=== PATIENT | male | born 1930 | race Caucasian/White ===

== ENCOUNTER 2016-10-09 20:30 | Inpatient (IN) | payer OTHER, BC ==
[~2016-10-09] VITALS: Ht 170.2 cm; Wt 69.9 kg
[~2016-10-09 20:30] MED LIST: ADVAIR HFA120 INHAL1 IH; ATROVENT 00.5 MG/2.5 IH; Ambien PO; Bentyl PO; CALCITRIOL0.25 MCG PO; CLARITHROMYCIN250 M1 PO; CLEOCIN300 MG PO; COLCHICINE,COL0.6 MG PO; COREG3.125 M1 PO; COUMADIN,JANTOVE4 MG PO; CRESTOR5 MG PO; Colchicine,Colcrys PO; Coreg PO; Coumadin,Jantoven PO; Cozaar PO; DIOVAN160 MG PO; Feosol PO; HYDROCODON-ACE1 EAC7 PO; LASIX20 MG PO; LASIX40 MG PO; LEVO-T50 MCG PO; LEVO-T88 MCG PO; LEVOFLOXACIN250 MG PO; LISINOPRIL2.5 MG PO; LISINOPRIL5 MG PO; Lasix PO; Levaquin PO; PRAVACHOL40 MG PO; PREDNISONE20 M1 PO; PROCRIT SQ; PROCRIT10000 UNI1 SC; PROCRIT40000 UNI1 IM; PROTONIX40 MG PO; PROVENTIL,2.5 MG/3 M IH; Pravachol PO; PriLOSEC PO; Protonix PO; Rocaltrol PO; SPIRIVA1 INHALATI IH; SYMBICORT60 INHALAT IH; SYNTHROID50 MCG PO; Symbicort 160-4.5 mc IH; VENTOLIN HFA18 GM IH; Vicodin,Norco 5/325 PO; Vitamin D PO; ZYLOPRIM100 MG PO; Zestril,Prinivil PO; Zyloprim PO; [UNRECOGNIZED DRUG - CODE] PO
[2016-10-09 22:46] LABS: ADD MIUA? NO; BILIRUBIN NEGATIVE; BLOOD NEGATIVE; COLOR YELLOW ((YELLOW)); GLUCOSE (STRIP) NEGATIVE; KETONES NEGATIVE; LEUKOCYTES NEGATIVE; NITRITE NEGATIVE; PROTEIN (STRIP) NEGATIVE; SPECIFIC GRAVITY 1.011 (1.000-1.030); UCUL ADDED? NO; UROBILINOGEN 0.2 MG/DL (0.2-1.0)
[2016-10-09 22:54] LABS: EOSINOPHIL (%) 5.6 % (0-5); EOSINOPHIL COUNT 0.1 K/uL (0-0.3); HEMATOCRIT 28.9 % (38.0-50.0); LYMPHOCYTE COUNT 0.8 K/uL (1.0-2.8); MCH 33.7 PG (29.0-34.0); MCHC 34.3 G/DL (30.0-36.0); MCV 98.3 FL (86-99); MEAN PLAT.VOLUME 9.6 uM^3 (9.0-12.4); MONOCYTE (%) 11.5 % (3-12); MONOCYTE COUNT 0.3 K/uL (0-0.8); NEUTROPHIL (%) 49.6 % (45-76); NEUTROPHIL COUNT 1.2 K/uL (1.8-6.4); PLATELET COUNT 76 K/uL (156-360); RBC DIS.WIDTH-CV 15.7 % (11.8-14.6); RED BLOOD COUNT 2.94 M/uL (4.00-5.50)
[2016-10-09 22:56] LABS: WHITE BLOOD COUNT 2.3 K/uL (4.1-10.2)
[2016-10-09 23:09] LABS: CHLORIDE 97 mEq/L (99-109); POTASSIUM 5.4 mEq/L (3.7-5.4); SODIUM 130 mEq/L (136-147)
[2016-10-09 23:10] LABS: MAGNESIUM 1.8 mg/dL (1.3-2.7)
[2016-10-09 23:12] LABS: GLUCOSE 98 mg/dL (70-99)
[2016-10-09 23:13] LABS: ANION GAP 14 MEQ/L (2-14)
[2016-10-09 23:14] LABS: TOTAL BILIRUBIN 0.7 mg/dL (0.0-1.0)
[2016-10-09 23:15] LABS: ALKALINE PHOSPHATASE 102 IU/L (3-129)
[2016-10-09 23:17] LABS: UREA NITROGEN (BUN) 86 mg/dL (9-23)
[2016-10-09 23:32] LABS: GFR ESTIMATE (CALCULATED) 11 mL/min/
[2016-10-10] MEDS ORDERED: SPIRIVA1 INHALATI IH (00:35)
[2016-10-10] MEDS ORDERED: VENTOLIN HFA18 GM IH (00:36)
[2016-10-10 03:28] VITALS: BP 121/65
[2016-10-10 03:45] LABS: ERTH.SED.RATE 84 MM/HR (0-20)
[2016-10-10 07:21] VITALS: BP 116/56
[2016-10-10 11:47] VITALS: BP 126/60
[2016-10-10 15:37] VITALS: BP 116/57
[2016-10-10 19:53] VITALS: BP 113/56
[2016-10-10 23:10] VITALS: BP 122/65
[2016-10-11 04:12] VITALS: BP 127/67
[2016-10-11 07:10] LABS: ANION GAP 12 MEQ/L (2-14); C-REACTIVE PROTEIN 32.5 MG/L (0-10); CHLORIDE 98 MEQ/L (99-109); GFR ESTIMATE (CALCULATED) 11 mL/min/; GLUCOSE 102 mg/dL (70-99); SAMPLE HEMOLYSIS CHECK 0; SAMPLE ICTERIC CHECK 0; SAMPLE LIPEMIA CHECK 0; SODIUM 130 MEQ/L (136-147); UREA NITROGEN (BUN) 84 mg/dL (9-23)
[2016-10-11 07:25] VITALS: BP 129/58
[2016-10-11 08:48] LABS: HEMATOCRIT 28.3 % (38.0-50.0); MCH 33.8 PG (29.0-34.0); MCHC 34.3 G/DL (30.0-36.0); MCV 98.6 FL (86-99); PLATELET COUNT 58 K/uL (156-360); RBC DIS.WIDTH-SD 58.2 % (39-53); RED BLOOD COUNT 2.87 M/uL (4.00-5.50); WHITE BLOOD COUNT 2.1 K/uL (4.1-10.2)
[2016-10-11 09:42] LABS: ERTH.SED.RATE 46 MM/HR (0-20)
[2016-10-11 11:33] VITALS: BP 126/64
[2016-10-11 13:31] LABS: FERRITIN 131 NG/ML (22-322)
[2016-10-11 15:30] VITALS: BP 105/53
[2016-10-11 21:02] VITALS: BP 116/56
[2016-10-11 23:39] VITALS: BP 129/85
[2016-10-12 05:26] VITALS: BP 137/64
[2016-10-12 07:00] VITALS: BP 143/63
[2016-10-12 07:29] LABS: ANION GAP 15 MEQ/L (2-14); CHLORIDE 98 MEQ/L (99-109); GFR ESTIMATE (CALCULATED) 11 mL/min/; GLUCOSE 128 mg/dL (70-99); POTASSIUM 4.7 MEQ/L (3.7-5.4); SAMPLE HEMOLYSIS CHECK 0; SAMPLE ICTERIC CHECK 0; SAMPLE LIPEMIA CHECK 0; SODIUM 132 MEQ/L (136-147); UREA NITROGEN (BUN) 86 mg/dL (9-23)
[2016-10-12 07:40] LABS: EOSINOPHIL (%) 5.3 % (0-5); EOSINOPHIL COUNT 0.1 K/uL (0-0.3); HEMATOCRIT 26.2 % (38.0-50.0); LYMPHOCYTE COUNT 0.6 K/uL (1.0-2.8); MCH 33.5 PG (29.0-34.0); MCHC 34.7 G/DL (30.0-36.0); MCV 96.3 FL (86-99); MONOCYTE (%) 10.5 % (3-12); MONOCYTE COUNT 0.2 K/uL (0-0.8); NEUTROPHIL (%) 42.8 % (45-76); NEUTROPHIL COUNT 0.7 K/uL (1.8-6.4); RBC DIS.WIDTH-CV 16.1 % (11.8-14.6); RBC DIS.WIDTH-SD 56.3 % (39-53); RED BLOOD COUNT 2.72 M/uL (4.00-5.50)
[2016-10-12 07:50] LABS: MEAN PLAT.VOLUME 10.1 uM^3 (9.0-12.4); PLAT.SUFFICIENCY DECREASED; PLATELET COUNT 42 K/uL (156-360); USER ID STC
[2016-10-12 07:53] LABS: WHITE BLOOD COUNT 1.5 K/uL (4.1-10.2)
[2016-10-12 12:00] VITALS: BP 134/62
[2016-10-12 16:00] VITALS: BP 124/67
[2016-10-12 22:27] VITALS: BP 131/60
[2016-10-13 06:21] LABS: EOSINOPHIL (%) 4.5 % (0-5); EOSINOPHIL COUNT 0.1 K/uL (0-0.3); HEMATOCRIT 25.2 % (38.0-50.0); LYMPHOCYTE COUNT 0.7 K/uL (1.0-2.8); MCH 33.1 PG (29.0-34.0); MCHC 34.1 G/DL (30.0-36.0); MCV 96.9 FL (86-99); MONOCYTE (%) 8.9 % (3-12); MONOCYTE COUNT 0.1 K/uL (0-0.8); NEUTROPHIL (%) 41.4 % (45-76); NEUTROPHIL COUNT 0.7 K/uL (1.8-6.4); RBC DIS.WIDTH-CV 16.2 % (11.8-14.6); RBC DIS.WIDTH-SD 57.6 % (39-53)
[2016-10-13 06:33] LABS: MEAN PLAT.VOLUME 10.3 uM^3 (9.0-12.4); PLAT.SUFFICIENCY DECREASED; PLATELET COUNT 33 K/uL (156-360); USER ID WCD; WHITE BLOOD COUNT 1.6 K/uL (4.1-10.2)
[2016-10-13 07:29] LABS: ALKALINE PHOSPHATASE 85 IU/L (3-129); ANION GAP 15 MEQ/L (2-14); CHLORIDE 103 MEQ/L (99-109); GFR ESTIMATE (CALCULATED) 11 mL/min/; GLUCOSE 120 mg/dL (70-99); POTASSIUM 4.8 MEQ/L (3.7-5.4); SAMPLE HEMOLYSIS CHECK 9; SAMPLE ICTERIC CHECK 9; SAMPLE LIPEMIA CHECK 9; SODIUM 134 MEQ/L (136-147); TOTAL BILIRUBIN 0.5 MG/DL (0.0-1.0); UREA NITROGEN (BUN) 90 mg/dL (9-23)
[2016-10-13 08:16] VITALS: BP 129/63
[2016-10-13 23:13] VITALS: BP 140/65
[2016-10-14 06:38] LABS: EOSINOPHIL (%) 2.9 % (0-5); EOSINOPHIL COUNT 0.1 K/uL (0-0.3); HEMATOCRIT 26.1 % (38.0-50.0); LYMPHOCYTE COUNT 0.9 K/uL (1.0-2.8); MCH 33.1 PG (29.0-34.0); MCHC 33.7 G/DL (30.0-36.0); MCV 97.7 FL (86-99); MONOCYTE (%) 11.6 % (3-12); MONOCYTE COUNT 0.2 K/uL (0-0.8); NEUTROPHIL (%) 32.9 % (45-76); NEUTROPHIL COUNT 0.6 K/uL (1.8-6.4); NRBC (%) 1.1 /100 WBC (0-0); RBC DIS.WIDTH-CV 16.3 % (11.8-14.6); RBC DIS.WIDTH-SD 58.2 % (39-53); RED BLOOD COUNT 2.66 M/uL (4.00-5.50)
[2016-10-14 06:39] LABS: WHITE BLOOD COUNT 1.7 K/uL (4.1-10.2)
[2016-10-14 07:27] VITALS: BP 144/84
[2016-10-14 07:47] LABS: ANION GAP 12 MEQ/L (2-14); CHLORIDE 101 MEQ/L (99-109); GFR ESTIMATE (CALCULATED) 11 mL/min/; GLUCOSE 107 mg/dL (70-99); POTASSIUM 4.9 MEQ/L (3.7-5.4); SAMPLE HEMOLYSIS CHECK 0; SAMPLE ICTERIC CHECK 0; SAMPLE LIPEMIA CHECK 0; SODIUM 133 MEQ/L (136-147); UREA NITROGEN (BUN) 88 mg/dL (9-23)
[2016-10-14 08:22] LABS: PLAT.SUFFICIENCY DECREASED; USER ID SDF
[2016-10-14 08:24] LABS: PLATELET COUNT 28 K/uL (156-360)
[2016-10-14 16:31] VITALS: BP 146/67
[2016-10-14 22:45] VITALS: BP 138/65
[2016-10-15 06:50] LABS: EOSINOPHIL (%) 1.2 % (0-5); HEMATOCRIT 24.1 % (38.0-50.0); IMMATURE GRANULOCYTE (%) 0.6 % (0.0-0.7); LYMPHOCYTE COUNT 0.7 K/uL (1.0-2.8); MCH 33.2 PG (29.0-34.0); MCV 98.4 FL (86-99); MEAN PLAT.VOLUME 10.2 uM^3 (9.0-12.4); MONOCYTE (%) 15.9 % (3-12); MONOCYTE COUNT 0.3 K/uL (0-0.8); NEUTROPHIL (%) 38.4 % (45-76); NEUTROPHIL COUNT 0.6 K/uL (1.8-6.4); RBC DIS.WIDTH-CV 16.2 % (11.8-14.6); RBC DIS.WIDTH-SD 58.2 % (39-53); RED BLOOD COUNT 2.47 M/uL (4.00-5.50)
[2016-10-15 06:52] LABS: ALKALINE PHOSPHATASE 84 IU/L (3-129); ANION GAP 10 MEQ/L (2-14); CHLORIDE 99 MEQ/L (99-109); GFR ESTIMATE (CALCULATED) 11 mL/min/; GLUCOSE 131 mg/dL (70-99); SAMPLE HEMOLYSIS CHECK 0; SAMPLE ICTERIC CHECK 0; SAMPLE LIPEMIA CHECK 0; SODIUM 131 MEQ/L (136-147); TOTAL BILIRUBIN 0.4 MG/DL (0.0-1.0); UREA NITROGEN (BUN) 94 mg/dL (9-23)
[2016-10-15 07:03] LABS: PLATELET COUNT 28 K/uL (156-360); WHITE BLOOD COUNT 1.6 K/uL (4.1-10.2)
[2016-10-15 07:11] LABS: HEMATOLOGY COMMENT 1 SMEAR COMPATIBLE; PLAT.SUFFICIENCY DECREASED; USER ID SDF
[2016-10-15 07:28] VITALS: BP 136/61
[2016-10-15 16:33] VITALS: BP 116/54
[2016-10-15 22:59] VITALS: BP 124/65
[2016-10-16 06:52] LABS: ALKALINE PHOSPHATASE 77 IU/L (3-129); ANION GAP 10 MEQ/L (2-14); CHLORIDE 99 MEQ/L (99-109); GFR ESTIMATE (CALCULATED) 9 mL/min/; GLUCOSE 121 mg/dL (70-99); POTASSIUM 5.2 MEQ/L (3.7-5.4); SAMPLE HEMOLYSIS CHECK 0; SAMPLE ICTERIC CHECK 0; SAMPLE LIPEMIA CHECK 0; SODIUM 130 MEQ/L (136-147); TOTAL BILIRUBIN 0.4 MG/DL (0.0-1.0); UREA NITROGEN (BUN) 100 mg/dL (9-23)
[2016-10-16 07:11] LABS: ANION GAP 11 MEQ/L (2-14); CHLORIDE 99 MEQ/L (99-109); GFR ESTIMATE (CALCULATED) 9 mL/min/; GLUCOSE 122 mg/dL (70-99); POTASSIUM 5.3 MEQ/L (3.7-5.4); SAMPLE HEMOLYSIS CHECK 0; SAMPLE ICTERIC CHECK 0; SAMPLE LIPEMIA CHECK 0; SODIUM 132 MEQ/L (136-147); UREA NITROGEN (BUN) 100 mg/dL (9-23)
[2016-10-16 07:25] LABS: HEMATOCRIT 23.5 % (38.0-50.0); IMMATURE GRANULOCYTE (%) 0.5 % (0.0-0.7); LYMPHOCYTE COUNT 0.9 K/uL (1.0-2.8); MCH 33.8 PG (29.0-34.0); MCHC 34.5 G/DL (30.0-36.0); MONOCYTE (%) 10.5 % (3-12); MONOCYTE COUNT 0.2 K/uL (0-0.8); NEUTROPHIL COUNT 0.9 K/uL (1.8-6.4); RBC DIS.WIDTH-SD 57.7 % (39-53)
[2016-10-16 07:32] LABS: MEAN PLAT.VOLUME 11.3 uM^3 (9.0-12.4); PLAT.SUFFICIENCY DECREASED; USER ID SDF
[2016-10-16 07:33] LABS: PLATELET COUNT 30 K/uL (156-360)
[2016-10-16 08:40] VITALS: BP 130/58
[2016-10-16 16:18] VITALS: BP 138/64
[2016-10-16 19:41] LABS: HBSG INDEX 0.22
[2016-10-16 19:42] LABS: AHBS INDEX 0.07; HEPATITIS B SURFACE ANTIBODY Nonreactive; HPCA INDEX 0.17
[2016-10-16 19:49] LABS: ANTI-HEPATITIS B CORE (TOTAL) Nonreactive; HBCT INDEX 0.12
[2016-10-16 23:33] VITALS: BP 125/64
[2016-10-17 07:39] VITALS: BP 119/66
[2016-10-17 08:26] LABS: INTER. NORMALIZED RATIO 1.1; PROTHROMBIN TIME 10.8 (9.2-11.2); PTT 33.8 (25-32)
[2016-10-17 08:53] LABS: HEMATOCRIT 23.8 % (38.0-50.0); MCH 33.5 PG (29.0-34.0); MCHC 34.9 G/DL (30.0-36.0); RBC DIS.WIDTH-CV 15.8 % (11.8-14.6); RBC DIS.WIDTH-SD 55.4 % (39-53); RED BLOOD COUNT 2.48 M/uL (4.00-5.50); WHITE BLOOD COUNT 1.7 K/uL (4.1-10.2)
[2016-10-17 08:59] LABS: ANION GAP 13 MEQ/L (2-14); CHLORIDE 98 MEQ/L (99-109); GFR ESTIMATE (CALCULATED) 9 mL/min/; GLUCOSE 160 mg/dL (70-99); SAMPLE HEMOLYSIS CHECK 0; SAMPLE ICTERIC CHECK 0; SAMPLE LIPEMIA CHECK 0; SODIUM 132 MEQ/L (136-147); UREA NITROGEN (BUN) 109 mg/dL (9-23)
[2016-10-17 09:02] LABS: MEAN PLAT.VOLUME 11.8 uM^3 (9.0-12.4)
[2016-10-17 09:19] LABS: PLATELET COUNT 44 K/uL (156-360)
[2016-10-17 11:13] LABS: EOSINOPHIL (%) 0 % (0-5); IMMATURE GRANULOCYTE (%) 0.6 % (0.0-0.7); LYMPHOCYTE COUNT 0.6 K/uL (1.0-2.8); MONOCYTE COUNT 0.1 K/uL (0-0.8); NEUTROPHIL (%) 57.3 % (45-76)
[2016-10-17 11:41] LABS: ABS NEUTROPHIL COUNT 0.93; EOSINOPHIL ABS CT 0.02; MACROCYTES 1+; OVALOCYTES RARE
[2016-10-17 12:22] VITALS: BP 136/76
[2016-10-17 15:43] VITALS: BP 140/91
[2016-10-17 23:35] VITALS: BP 119/58
[2016-10-18 08:14] LABS: ANION GAP 10 MEQ/L (2-14); CHLORIDE 101 MEQ/L (99-109); POTASSIUM 4.2 MEQ/L (3.7-5.4); SAMPLE HEMOLYSIS CHECK 0; SAMPLE ICTERIC CHECK 0; SAMPLE LIPEMIA CHECK 0; SODIUM 133 MEQ/L (136-147)
[2016-10-18 08:19] LABS: MCH 32.8 PG (29.0-34.0); MCHC 34.2 G/DL (30.0-36.0); MEAN PLAT.VOLUME 11.5 uM^3 (9.0-12.4); PLATELET COUNT 69 K/uL (156-360); RBC DIS.WIDTH-CV 15.6 % (11.8-14.6); RBC DIS.WIDTH-SD 54.8 % (39-53); WHITE BLOOD COUNT 2.9 K/uL (4.1-10.2)
[2016-10-18 08:20] LABS: GFR ESTIMATE (CALCULATED) 14 mL/min/; GLUCOSE 190 mg/dL (70-99); UREA NITROGEN (BUN) 67 mg/dL (9-23)
[2016-10-18 13:23] VITALS: BP 136/74
[2016-10-18 16:14] VITALS: BP 117/53
[2016-10-19 00:13] VITALS: BP 125/64
[2016-10-19] MEDS ORDERED: BUMETANIDE0.5 MG PO (07:55)
[2016-10-19] MEDS ORDERED: CALCIUM ACETAT667 MG PO (07:55)
[2016-10-19] MEDS ORDERED: PREDNISONE20 MG PO (07:55)
[2016-10-19] MEDS ORDERED: NABI650T PO (07:55)
[2016-10-19] MEDS ORDERED: ARANESP60 MCG/0.3 SC (07:55)
[2016-10-19] MEDS ORDERED: TUDORZA PRESS400 MCG IH (08:02)
[2016-10-19 08:53] LABS: ANION GAP 13 MEQ/L (2-14); CHLORIDE 100 MEQ/L (99-109); GFR ESTIMATE (CALCULATED) 16 mL/min/; GLUCOSE 233 mg/dL (70-99); POTASSIUM 4.2 MEQ/L (3.7-5.4); SAMPLE HEMOLYSIS CHECK 0; SAMPLE ICTERIC CHECK 0; SAMPLE LIPEMIA CHECK 0; SODIUM 135 MEQ/L (136-147); UREA NITROGEN (BUN) 58 mg/dL (9-23)
[2016-10-19 09:47] LABS: EOSINOPHIL (%) 0 % (0-5); HEMATOCRIT 25.2 % (38.0-50.0); IMMATURE GRANULOCYTE (%) 1.4 % (0.0-0.7); IMMATURE GRANULOCYTE COUNT 0.1 K/uL; LYMPHOCYTE COUNT 0.7 K/uL (1.0-2.8); MCH 33.6 PG (29.0-34.0); MCHC 34.5 G/DL (30.0-36.0); MCV 97.3 FL (86-99); MEAN PLAT.VOLUME 11.4 uM^3 (9.0-12.4); MONOCYTE (%) 9.4 % (3-12); MONOCYTE COUNT 0.3 K/uL (0-0.8); NEUTROPHIL (%) 70.7 % (45-76); NEUTROPHIL COUNT 2.6 K/uL (1.8-6.4); PLAT.SUFFICIENCY DECREASED; RBC DIS.WIDTH-CV 15.8 % (11.8-14.6); RBC DIS.WIDTH-SD 55.8 % (39-53); RED BLOOD COUNT 2.59 M/uL (4.00-5.50); USER ID TLN; WHITE BLOOD COUNT 3.6 K/uL (4.1-10.2)
[2016-10-19 09:52] LABS: ABS NEUTROPHIL COUNT 3.05; ANISOCYTOSIS 1+; MACROCYTES 1+; OVALOCYTES OCC; POLYCHROMASIA 1+
[2016-10-19 09:56] LABS: PLATELET COUNT 90 K/uL (156-360)
[2016-10-19 12:24] VITALS: BP 129/64
[2016-10-19 16:02] VITALS: BP 124/58
[2016-10-19 16:03] VITALS: BP 138/62
[2016-10-19 23:08] VITALS: BP 125/59
[2016-10-20 07:20] VITALS: BP 155/71
[2016-10-20 08:19] LABS: HEMATOCRIT 24.2 % (38.0-50.0); MCH 33.2 PG (29.0-34.0); MCHC 33.5 G/DL (30.0-36.0); MCV 99.2 FL (86-99); PLATELET COUNT 86 K/uL (156-360); RBC DIS.WIDTH-CV 16.4 % (11.8-14.6); RBC DIS.WIDTH-SD 58.5 % (39-53); RED BLOOD COUNT 2.44 M/uL (4.00-5.50); WHITE BLOOD COUNT 4.2 K/uL (4.1-10.2)
[2016-10-20 08:39] LABS: ANION GAP 12 MEQ/L (2-14); CHLORIDE 103 MEQ/L (99-109); GFR ESTIMATE (CALCULATED) 21 mL/min/; GLUCOSE 225 mg/dL (70-99); POTASSIUM 3.9 MEQ/L (3.7-5.4); SAMPLE HEMOLYSIS CHECK 0; SAMPLE ICTERIC CHECK 0; SAMPLE LIPEMIA CHECK 0; SODIUM 138 MEQ/L (136-147); UREA NITROGEN (BUN) 41 mg/dL (9-23)
[2016-10-20 13:12] LABS: Flow Clinical Information PANCYTOPENIA (()); Flow Number of Markers 22 (()); Flow Spec Viability 92 % (()); Flow Specimen Type BONE MARROW (())
== END 2016-10-20 15:21 | disposition home or self-care (01) | DRG 683 ==
LOC: EME 20:30 → 5EAST 10-10 02:40 → EDOF 10-10 02:40 → 5EAST 10-10 03:16
PROVIDERS: Emergency Medicine; Hospitalist; Internal Medicine; Internal Medicine Hematology & Oncology; Internal Medicine Nephrology; Nurse Practitioner Adult Health; Pediatrics; Physician Assistant; Physician Assistant Medical; Radiology Diagnostic Radiology
PROC: 5A1D60Z (ICD-10-PCS; principal; 2016-10-17)
PROC: 07DR3ZX Extraction of Iliac Bone Marrow, Percutaneous Approach, Diagnostic (ICD-10-PCS; principal; 2016-10-17)
DX: N17.9 Acute kidney failure, unspecified (principal); E87.2 Acidosis; E87.1 Hypo-osmolality and hyponatremia; L03.115 Cellulitis of right lower limb; E46 Unspecified protein-calorie malnutrition; L03.116 Cellulitis of left lower limb; I12.0 Hypertensive chronic kidney disease with stage 5 chronic kidney disease or end stage renal disease; D61.818 Other pancytopenia; R60.1 Generalized edema; N28.9 Disorder of kidney and ureter, unspecified; D63.1 Anemia in chronic kidney disease; I25.10 Atherosclerotic heart disease of native coronary artery without angina pectoris; D69.49 Other primary thrombocytopenia; I34.0 Nonrheumatic mitral (valve) insufficiency; E78.5 Hyperlipidemia, unspecified; E11.22 Type 2 diabetes mellitus with diabetic chronic kidney disease; R79.89 Other specified abnormal findings of blood chemistry; E21.1 Secondary hyperparathyroidism, not elsewhere classified; I25.5 Ischemic cardiomyopathy; J44.9 Chronic obstructive pulmonary disease, unspecified; E87.5 Hyperkalemia; I50.9 Heart failure, unspecified; E87.79 Other fluid overload; N18.6 End stage renal disease; I27.2 Other secondary pulmonary hypertension; I25.2 Old myocardial infarction; Z95.1 Presence of aortocoronary bypass graft; Z87.891 Personal history of nicotine dependence; Z95.5 Presence of coronary angioplasty implant and graft; Z86.711 Personal history of pulmonary embolism; Z88.2 Allergy status to sulfonamides; Z88.0 Allergy status to penicillin; Z88.1 Allergy status to other antibiotic agents; Z88.8 Allergy status to other drugs, medicaments and biological substances; Z85.47 Personal history of malignant neoplasm of testis; R06.2 Wheezing
CPT/HCPCS: 71020; 76770; 77012; 80048; 80053; 80069; 81003; 82607; 82728; 82746; 83605; 83735; 83935; 84100; 84133; 84134; 84300; 84439; 84443; 85007; 85025; 85027; 85610; 85651; 85730; 85999; 86140; 86704; 86706; 86803; 86850; 86900; 86901; 87040; 87086; 87340; 88184 90; 88185 90; 88189 90; 93005; 93306; 94640; 94640 76; 94667; 94668; 94760; 97530 GO; 97530 GP; 99202; 99281; 99285; J0881; J1644; J3010; J7030; J7512

== ENCOUNTER 2016-11-21 06:49 | Day surgery (SDC) | payer OTHER, BC ==
[~2016-11-21] VITALS: Ht 170.2 cm; Wt 57.0 kg
[~2016-11-21 06:49] MED LIST changes: +ARANESP60 MCG/0.3 SC; +BUMETANIDE0.5 MG PO; +CALCIUM ACETAT667 MG PO; +NABI650T PO; +PREDNISONE20 MG PO; +TUDORZA PRESS400 MCG IH
[2016-11-21 09:17] LABS: METH RESISTANT S AUREUS PCR POSITIVE (NEGATIVE)
[2016-11-21 09:18] LABS: PROBE CHECK PASS
== END 2016-11-21 09:45 | disposition home or self-care (01) ==
LOC: CATH 06:49
PROVIDERS: Surgery
DX: T82.858A Stenosis of other vascular prosthetic devices, implants and grafts, initial encounter (principal); Y83.2 Surgical operation with anastomosis, bypass or graft as the cause of abnormal reaction of the patient, or of later complication, without mention of misadventure at the time of the procedure; Z99.2 Dependence on renal dialysis; I12.0 Hypertensive chronic kidney disease with stage 5 chronic kidney disease or end stage renal disease; N18.6 End stage renal disease; J45.909 Unspecified asthma, uncomplicated; I25.10 Atherosclerotic heart disease of native coronary artery without angina pectoris; I25.2 Old myocardial infarction
CPT/HCPCS: 87641; C1725; C1769; C1874; C1894; J1644; J2250; J3010

== ENCOUNTER 2017-01-04 07:31 | Day surgery (SDC) | payer OTHER, BC ==
[~2017-01-04] VITALS: Ht 170.2 cm; Wt 52.6 kg
[~2017-01-04 07:31] MED LIST changes: +LASIX80 MG PO
[2017-01-04 09:23] LABS: METH RESISTANT S AUREUS PCR POSITIVE (NEGATIVE)
[2017-01-04 09:26] LABS: PROBE CHECK PASS
== END 2017-01-04 10:35 | disposition home or self-care (01) ==
LOC: CATH 07:31
PROVIDERS: Surgery
DX: T82.858A Stenosis of other vascular prosthetic devices, implants and grafts, initial encounter (principal); Y83.2 Surgical operation with anastomosis, bypass or graft as the cause of abnormal reaction of the patient, or of later complication, without mention of misadventure at the time of the procedure; I12.0 Hypertensive chronic kidney disease with stage 5 chronic kidney disease or end stage renal disease; N18.6 End stage renal disease; Z99.2 Dependence on renal dialysis; I25.10 Atherosclerotic heart disease of native coronary artery without angina pectoris; I25.2 Old myocardial infarction; J45.909 Unspecified asthma, uncomplicated; Z85.46 Personal history of malignant neoplasm of prostate; Z87.11 Personal history of peptic ulcer disease; Z86.19 Personal history of other infectious and parasitic diseases; Z88.0 Allergy status to penicillin
CPT/HCPCS: 87641; C1725; C1769; C1894; J1644; J2250; J3010

== ENCOUNTER 2017-09-27 06:45 | Day surgery (SDC) | payer OTHER, BC ==
[~2017-09-27] VITALS: Ht 170.2 cm; Wt 53.5 kg
[~2017-09-27 06:45] MED LIST changes: +DIALYVITE TABL1 EACH PO
== END 2017-09-27 09:25 | disposition home or self-care (01) ==
LOC: CATH 06:45
PROC: 05HY33Z Insertion of Infusion Device into Upper Vein, Percutaneous Approach (ICD-10-PCS; principal; 2017-09-27)
PROC: 057Y3DZ Dilation of Upper Vein with Intraluminal Device, Percutaneous Approach (ICD-10-PCS; principal; 2017-09-27)
PROC: B51W1ZZ Fluoroscopy of Dialysis Shunt/Fistula using Low Osmolar Contrast (ICD-10-PCS; principal; 2017-09-27)
PROC: 3E03317 Introduction of Other Thrombolytic into Peripheral Vein, Percutaneous Approach (ICD-10-PCS; principal; 2017-09-27)
DX: T82.858A Stenosis of other vascular prosthetic devices, implants and grafts, initial encounter (principal); N18.6 End stage renal disease; Z99.2 Dependence on renal dialysis
CPT/HCPCS: 87641; C1725; C1769; C1874; C1894; J1644; J2250; J3010

== ENCOUNTER 2018-01-25 12:42 | Day surgery (SDC) | payer OTHER, BC ==
[~2018-01-25] VITALS: Ht 170.2 cm; Wt 57.1 kg
== END 2018-01-25 15:43 | disposition home or self-care (01) ==
LOC: CATH 12:42
DX: T82.858A Stenosis of other vascular prosthetic devices, implants and grafts, initial encounter (principal); Y83.2 Surgical operation with anastomosis, bypass or graft as the cause of abnormal reaction of the patient, or of later complication, without mention of misadventure at the time of the procedure
CPT/HCPCS: 87641; C1725; C1769; C1894; J1644; J2250; J3010

== ENCOUNTER 2018-05-16 07:48 | Day surgery (SDC) | payer OTHER, BC ==
[~2018-05-16] VITALS: Ht 167.6 cm; Wt 57.6 kg
[~2018-05-16 07:48] MED LIST changes: +CLINDAMYCIN HC300 MG PO; +PROBIOTIC1 EAC1 PO
== END 2018-05-16 11:35 | disposition home or self-care (01) ==
LOC: CATH 07:48
DX: T82.858A Stenosis of other vascular prosthetic devices, implants and grafts, initial encounter (principal); Y83.2 Surgical operation with anastomosis, bypass or graft as the cause of abnormal reaction of the patient, or of later complication, without mention of misadventure at the time of the procedure; N18.6 End stage renal disease; Z99.2 Dependence on renal dialysis; I25.10 Atherosclerotic heart disease of native coronary artery without angina pectoris; D64.9 Anemia, unspecified; Z86.718 Personal history of other venous thrombosis and embolism; I25.2 Old myocardial infarction; Z88.0 Allergy status to penicillin; Z88.2 Allergy status to sulfonamides; Z88.8 Allergy status to other drugs, medicaments and biological substances; Z87.891 Personal history of nicotine dependence
CPT/HCPCS: 87641; C1725; C1769; C1874; C1894; J1644; J2250; J3010